=== PATIENT | male | born 1970 | race Caucasian/White ===

== ENCOUNTER 2022-08-21 17:21 | Emergency (ER) | payer BC ==
[~2022-08-21] VITALS: Ht 180.3 cm; Wt 68.2 kg
[~2022-08-21 17:21] MED LIST: ATENOLOL25 MG PO; CITALOPRAM20 MG PO; MELATONIN3 M3 PO; PENICILLN VK500 MG PO; TRAZODONE50 MG PO
[2022-08-21 17:26] VITALS: BP 148/94
[2022-08-21 17:30] VITALS: BP 133/92
[2022-08-21 18:01] VITALS: BP 123/45
[2022-08-21] MEDS ORDERED: NAPROXEN500 MG PO (18:24)
[2022-08-21 18:30] VITALS: BP 117/79
[2022-08-21 18:52] VITALS: BP 111/88
== END 2022-08-21 19:08 | disposition home or self-care (01) | DRG 914 ==
LOC: ED 17:21
DX: S49.81XA Other specified injuries of right shoulder and upper arm, initial encounter (principal); X50.0XXA Overexertion from strenuous movement or load, initial encounter; Y93.89 Activity, other specified; Y99.0 Civilian activity done for income or pay